=== PATIENT | female | born 1950 | race Caucasian/White ===

== ENCOUNTER → 2024-01-10 10:08 | Outpatient (REF) | payer MEDICARE, BC, SELFPAY | LOC: HWRAD 10:08 | PROVIDERS: ATTENDING PHYSICIAN Internal Medicine Rheumatology; FAMILY PHYSICIAN Physician Assistant; REFERRING PHYSICIAN Internal Medicine Rheumatology | DX: M81.0 Age-related osteoporosis without current pathological fracture (principal) | CPT/HCPCS: 77080 ==